=== PATIENT | female | born 1990 | race Caucasian/White ===

== ENCOUNTER 2016-08-12 16:00 | Outpatient (CLI) | payer OTHER | END 2016-08-12 16:01 | disposition home or self-care (01) | DX: E87.6 Hypokalemia (principal) ==

== ENCOUNTER 2017-08-06 16:02 | Emergency (ER) | payer OTHER ==
[2017-08-06 17:45] VITALS: BP 120/75
[2017-08-06] MEDS ORDERED: DEXAMETHASONE 10 MG/ML VIAL PO STA (18:03)
--- NOTE | 2017-08-06 18:05 | ED Physician Documentation ---
PD HPI UPPER EXT INJURY - Stated complaint Stated Complaint: LEFT SIDE PAIN - Chief complaint Chief Complaint: Ext Problem - History obtained from History obtained from: Patient - History of Present Illness Location: Left, Elbow Timing - onset: Yesterday Timing - duration: Days (1) Pain level max: 5 Pain level now: 3 Improved by: Rest Worsened by: Moving Associated symptoms: Tingling Contributing factors: No: Anticoagulated, Prior ortho surgery, Prosthetic joint Similar symptoms before: Has not had sx before Recently seen: Not recently seen - Additonal information Additional information: pain to the L elbow yesterday . Resolved with aleve. today had tingling to the L 4th and 5th digits now better. No known injury. No repetitive movements. Review of Systems Constitutional: denies: Fever, Chills GI: denies: Abdominal Pain, Nausea, Vomiting, Diarrhea : denies: Now EGA Skin: denies: Rash Musculoskeletal: denies: Neck pain, Back pain Neurologic: denies: Headache PD PAST MEDICAL HISTORY - Past Medical History Past Medical History: No - Past Surgical History Past Surgical History: No - Present Medications Home Medications: Ambulatory Orders Medication Instructions Recorded Confirmed Meloxicam [Mobic] 7.5 mg PO BID PRN #20 tablet 08/06/17 - Allergies Allergies/Adverse Reactions: Allergies Allergy/AdvReac Type Severity Reaction Status Date / Time No Known Drug Allergies Allergy Verified 08/06/17 18:10 - Social History Does the pt smoke?: No Smoking Status: Never smoker Does the pt drink ETOH?: Yes Does the pt have substance abuse?: No - Immunizations Immunizations are current?: Yes PD ED PE NORMAL - Vitals Vital signs reviewed: Yes - General General: Alert and oriented X 3, No acute distress - HEENT HEENT: Moist mucous membranes - Neck Neck: Supple, no meningeal sign, No bony TTP, Other (neg spurling test) - Derm Derm: Warm and dry - Extremities Extremities: Other (L arm - normal ROM of all joints with no tenderness. Feels shooting pain with percussion of the ulnar tunnel. mild decreased sensation over L 4th and 5th digits. brisk cap refill. normal radial and brachial pulses. no swelling. normal allens test.) - Neuro Neuro: Alert and oriented X 3 - Psych Psych: Normal mood, Normal affect Results - Vitals Vitals: Vital Signs - 24 hr 08/06/17 08/06/17 16:05 17:42 Temperature 36.2 C L 37.3 C Heart Rate 109 H 100 Respiratory 18 16 Rate Blood Pressure 130/77 120/75 O2 Saturation 100 100 Oxygen O2 Source Room air PD MEDICAL DECISION MAKING - ED course Complexity details: considered differential, d/w patient ED course: Patient is a 27-year-old female who appears to have irritation of the left ulnar nerve. Will place on steroids and nonsteroidal anti-inflammatories for home and follow-up with her doctor. She is well-appearing, nontoxic. Afebrile. No evidence of DVT. No evidence of arterial injury. Patient counseled regarding signs and symptoms for which I believe and urgent re- evaluation would be necessary. Patient with good understanding of and agreement to plan and is comfortable going home at this time This document was made in part using voice recognition software. While efforts are made to proofread this document, sound alike and grammatical errors may occur. Departure - Departure Disposition: Home, Self Care Clinical Impression: Ulnar nerve compression Qualifiers: Laterality: left Qualified Code(s): G56.22 - Lesion of ulnar nerve, left upper limb Condition: Good Instructions: ED Paraesthesias Follow-Up: Marge Obrien PA-C [Primary Care Provider] - Within 1 week Prescriptions: Meloxicam [Mobic] 7.5 mg PO BID PRN #20 tablet PRN Reason: Pain Comments: Return if you worsen. This should improve over the next few days. Discharge Date/Time: 08/06/17 18:32
[2017-08-06] MEDS ORDERED: CHERRY SYRUP 10 ML UDC PO ONE (18:21)
== END 2017-08-06 18:32 | disposition home or self-care (01) ==
LOC: ED 16:02
DX: G56.22 Lesion of ulnar nerve, left upper limb (principal)
CPT/HCPCS: 99283; A9270

== ENCOUNTER 2017-08-07 14:01 | Emergency (ER) | payer OTHER ==
--- NOTE | 2017-08-07 17:36 | XRAY Preliminary Report ---
Exam: XR CHEST 2 VIEW X-RAY IMPRESSION: Normal 2-view chest radiography. [facility] SITE ID: [id number]
--- NOTE | 2017-08-07 17:38 | XRAY Report ---
EXAM: CHEST RADIOGRAPHY EXAM DATE: 08/07/2017 05:27 PM. CLINICAL HISTORY: Chest pain and finger dysesthesias for one day. COMPARISON: None. TECHNIQUE: 2 views. FINDINGS: Lungs/Pleura: No focal opacities evident. No pleural effusion. No pneumothorax. Normal volumes. Mediastinum: Heart and mediastinal contours are unremarkable. Other: None. IMPRESSION: Normal 2-view chest radiography. [facility] Referring Provider Line: [phone] SITE ID: [id number]
--- NOTE | 2017-08-07 18:26 | ED Physician Documentation ---
History of Present Illness - Stated complaint Stated Complaint: CHEST PX - Chief complaint Chief Complaint: Cardiac - Additonal information Additional information: hx from pt 27 y/o f seen yesterday for l arm paresthesias today about noon she developed fleeting episodes of ant chest pain lasting a few sec at a time no specific precipitating or palliating factors identified no soa no fever or cough no abd pain no leg swelling no recent travel surgery etc non smoker not on OCP called the clinic who rec she come back to ED again Review of Systems Constitutional: denies: Fever Cardiac: reports: Chest pain / pressure Respiratory: denies: Dyspnea, Cough GI: denies: Abdominal Pain, Nausea, Vomiting : denies: Now EGA (denies) Musculoskeletal: denies: Extremity pain, Extremity swelling PD PAST MEDICAL HISTORY - Past Surgical History Past Surgical History: No - Present Medications Home Medications: Ambulatory Orders Medication Instructions Recorded Confirmed Meloxicam [Mobic] 7.5 mg PO BID PRN #20 tablet 08/06/17 - Allergies Allergies/Adverse Reactions: Allergies Allergy/AdvReac Type Severity Reaction Status Date / Time No Known Drug Allergies Allergy Verified 08/06/17 18:10 - Social History Does the pt smoke?: No Smoking Status: Never smoker Does the pt drink ETOH?: Yes Does the pt have substance abuse?: No - Immunizations Immunizations are current?: Yes - POLST Patient has POLST: No PD ED PE NORMAL - Vitals Vital signs reviewed: Yes - General General: Alert and oriented X 3 - HEENT HEENT: Atraumatic - Neck Neck: Supple, no meningeal sign - Cardiac Cardiac: RRR - Respiratory Respiratory: No respiratory distress, Clear bilaterally - Abdomen Abdomen: Soft, Non tender - Derm Derm: Normal color - Extremities Extremities: No edema, No calf tenderness / cord - Neuro Neuro: Alert and oriented X 3 Results - Vitals Vitals: Vital Signs - 24 hr 08/07/17 08/07/17 08/07/17 14:14 16:10 16:30 Temperature 36.5 C Heart Rate 91 88 84 Respiratory 16 16 16 Rate Blood Pressure 117/81 H 112/68 113/67 O2 Saturation 100 97 08/07/17 08/07/17 17:00 17:25 Temperature Heart Rate 80 82 Respiratory 16 Rate Blood Pressure 119/67 114/70 O2 Saturation 98 Oxygen O2 Source Room air - EKG (time done) 1424 Rate: Rate (enter#) Rhythm: NSR [place]: Normal Intervals: Normal UT QRS: Normal Ischemia: Normal ST segments - Labs Labs: Laboratory Tests 08/07/17 08/07/17 17:05 17:05 Hgb 13.7 Troponin I < 0.04 - Rads (name of study) CXR Radiology: See rad report (neg) PD MEDICAL DECISION MAKING - ED course ED course: neg EKG neg trop neg CXR neg PERC will reassure and dc Departure - Departure Disposition: Home, Self Care Clinical Impression: Chest pain Qualifiers: Chest pain type: unspecified Qualified Code(s): R07.9 - Chest pain, unspecified Condition: Good Instructions: ED Chest Pain Atypical Unkn Cause Follow-Up: Marge Obrien PA-C [Primary Care Provider] - Comments: All your tests were fine. The EKG and blood work do not suggest a heart attack. Your exam and history do not suggest a blood clot in your lungs. The xray does not show a collapsed lung, or fluid or infection in your lungs nor an aneurysm or tear of your artoa I am not sure what caused the pain but given the reassuring work up I think it is safe for you to go home
[2017-08-07 18:51] VITALS: BP 115/67
== END 2017-08-07 18:52 | disposition home or self-care (01) ==
LOC: ED 14:01
DX: R07.9 Chest pain, unspecified (principal); R20.2 Paresthesia of skin
CPT/HCPCS: 36415; 71046; 84484; 85018; 93005; 99283

== ENCOUNTER 2018-01-29 10:25 | Outpatient (CLI) | payer OTHER ==
[2018-01-29 18:52] LABS: BASOPHILS % (AUTO) 0.4 %; EOSINOPHILS # (AUTO) 0.1 10^3/uL (0.0-0.7); EOSINOPHILS % (AUTO) 0.8 %; HGB - HEMOGLOBIN 13.8 g/dL (12.0-16.0); LYMPHOCYTES % (AUTO) 27.3 %; MEAN CORPUSCULAR HEMOGLOBIN 31.3 pg (27.0-31.0); MEAN CORPUSCULAR HGB CONC 34.1 g/dL (32.0-36.0); MEAN CORPUSCULAR VOLUME 91.8 fL (81.0-99.0); MEAN PLATELET VOLUME 8.6 fL (7.9-10.8); MONOCYTES # (AUTO) 0.3 10^3/uL (0.0-1.0); MONOCYTES % (AUTO) 4.4 %; NEUTROPHILS # (AUTO) 4.8 10^3/uL (1.5-6.6); NEUTROPHILS % (AUTO) 67.1 %; PLT - PLATELET COUNT 228 10^3/uL (130-450); RED BLOOD COUNT 4.42 10^6/uL (4.20-5.40); RED CELL DISTRIBUTION WIDTH 12.7 % (12.0-15.0); WHITE BLOOD COUNT 7.2 x10^3/uL (4.8-10.8)
[2018-01-29 18:56] LABS: ALBUMIN 3.7 g/dL (3.2-5.5); ALBUMIN/GLOBULIN RATIO 1.1 (1.0-2.2); BILIRUBIN,TOTAL 0.7 mg/dL (0.2-1.0); CREATININE 0.7 mg/dL (0.4-1.0)
[2018-01-29 19:02] LABS: HB2 TOTAL 14.2 g/dL; HEMOGLOBIN A1C 0.49 g/dL; HEMOGLOBIN A1C % 5.3 % (4.6-6.2)
== END 2018-01-29 10:26 | disposition home or self-care (01) ==
LOC: LAB.WCP 10:25
PROVIDERS: ATTEND Physician Assistant
DX: Z00.00 Encounter for general adult medical examination without abnormal findings (principal); N92.6 Irregular menstruation, unspecified
CPT/HCPCS: 36415; 80053; 83036; 84443; 85025

== ENCOUNTER 2018-02-09 13:24 | Outpatient (CLI) | payer OTHER ==
--- NOTE | 2018-02-09 17:12 | Ultrasound Report ---
Procedure Date: 02/09/2018 Accession Number: [id number] / [id number] Procedure: US - Pelvic w/Transvaginal CPT Code: FULL RESULT: EXAM: Pelvic w/Transvaginal DATE: 02/09/2018 2:18 PM CLINICAL HISTORY: IRREGULAR MENSES COMPARISON: None. TECHNIQUE: Realtime transabdominal imaging performed to identify the uterus and adnexa and as an overview of other pelvic structures, followed by transvaginal imaging for better assessment of the endometrium and/or adnexa, with static image documentation. FINDINGS: Uterus: 8.5 x 4.2 x 5.0 cm, volume 93 cc. Anteverted position. Normal overall size and echotexture. Masses: None. Endometrium: 8 mm. Normal. Cervix: Unremarkable. Right Ovary/Adnexa: 4.1 x 2.6 x 3.6 cm, volume 20 cc. Normal echotexture. Blood flow is present. No adnexal mass is seen. Left Ovary/Adnexa: 7.2 x 2.8 x 4.0 cm, volume 42 cc. Normal echotexture. Blood flow is present. Dominant follicles as well as a 2.5 x 2.1 x 2.7 cm hypoechoic solid-appearing heterogeneous mass with hyperechoic foci and no internal vascularity by color Doppler. Free Fluid: Small quantity of free fluid felt to be within physiologic limits. Other: None. IMPRESSION: Indeterminate left adnexal mass. Recommend characterization by MRI to determine whether this can be definitively characterized as a benign structure such as teratoma or atypically appearing hemorrhagic cyst. [facility]
== END 2018-02-09 13:25 | disposition home or self-care (01) ==
LOC: DI 13:24
PROVIDERS: ATTEND Physician Assistant
DX: N92.6 Irregular menstruation, unspecified (principal)
CPT/HCPCS: 76830; 76856

== ENCOUNTER 2018-02-24 12:29 | Outpatient (CLI) | payer OTHER ==
[2018-02-24] MEDS ORDERED: GADOBUTROL 7.5 MMOL/7.5 ML VIAL ONE (12:37)
[2018-02-24] MEDS ORDERED: GADOBUTROL 7.5 MMOL/7.5 ML VIAL IVP ONE (12:59)
--- NOTE | 2018-02-25 14:24 | MRI Report ---
Procedure Date: 02/24/2018 Accession Number: [id number] / [id number] Procedure: MRI - Pelvis W/WO CPT Code: FULL RESULT: EXAM: MR PELVIS WITH AND WITHOUT CONTRAST (MR FEMALE PELVIS) EXAM DATE: 02/24/2018 01:33 PM. CLINICAL HISTORY: Left adnexal/ OVARIAN MASS. pelvic pain. COMPARISON: Ultrasound 02/09/2018. TECHNIQUE: Multiplanar breath-hold T1, T2 weighted images obtained through the pelvis on an MR scanner. Fat-sat T1 was not performed. Images obtained before and after administration of 7.5 cc Gadavist intravenous contrast. FINDINGS: Reproductive Organs: Uterus: The uterus is anteverted and measures approximately 7.6 x 3.6 x 4.6 cm with volume 63 cc. The endometrial stripe measures 4 mm. There are no uterine masses. Right Ovary: The right ovary measures 3.8 x 2.4 x 3.4 cm with volume 16 cc. The right ovary appears normal in size with multiple small peripheral follicles. Left Ovary: The left ovary is difficult to measure as it has peripheral or adjacent dominant cysts. The left adnexal complex measures approximately 6.7 x 2.8 x 3.8 cm with volume 36 cc. The solid portion of the ovary shows multiple sub-centimeter follicles. There are 3 left adnexal cysts 2 of which may be peripherally ovarian and one of which is either exophytic or paraovarian. These cysts measure approximately 3.4 cm, 2.3 cm, and 3.5 cm. Also 3 cysts were seen on the prior ultrasound where they appeared hypoechoic. All 3 cysts are markedly hyperintense on in phase T1, markedly hyperintense on posteriorly T1 without peripheral chemical shift artifact (not fat), variably hypointense (so-called shading) on turbo spin-echo T2, markedly hypointense on STIR (mimicking fat), hyperintense on precontrast and postcontrast fat-suppressed gradient echo T1-weighted images (THRIVE) (not fat). Bowel: The visualized portions of the small bowel, colon, and rectum appear normal. Bladder: The urinary bladder appears normal. Other: Trace dependent free fluid in the pelvis. IMPRESSION: 1. Approximately 3.4 cm, 2.3 cm, and 3.5 cm left ovarian/paraovarian endometriomas without significant change from the recent ultrasound. 2. Multiple peripherally distributed follicles most evident in the nondistorted right ovary. Polycystic ovarian syndrome is not excluded. 3. Trace dependent free fluid in the pelvis. [facility]
== END 2018-02-24 12:30 | disposition home or self-care (01) ==
LOC: DI 12:29
PROVIDERS: ATTEND Physician Assistant
DX: N80.1 Endometriosis of ovary (principal)
CPT/HCPCS: 72197; A9585